=== PATIENT | male | born 1965 | race Caucasian/White ===

== ENCOUNTER 2022-07-19 17:23 | Emergency (ER) | payer OTHER ==
[~2022-07-19] VITALS: Ht 177.8 cm; Wt 141.1 kg
== END 2022-07-19 22:35 | disposition home or self-care (01) ==
LOC: ED 17:23
DX: S20.213A Contusion of bilateral front wall of thorax, initial encounter (principal); R74.8 Abnormal levels of other serum enzymes; R03.0 Elevated blood-pressure reading, without diagnosis of hypertension; W19.XXXA Unspecified fall, initial encounter
CPT/HCPCS: 36415; 71101; 80053; 83690; 85025; 99283-25; A9270